=== PATIENT | male | born 1960 | race Caucasian/White ===

== ENCOUNTER → 2020-12-16 01:55 | Outpatient (CLI) | payer BC, SELFPAY ==
[2020-12-16 19:33] LABS: SARS-CoV-2 RNA PCR Negative
== END ==
PROVIDERS: Visit Provider Internal Medicine Gastroenterology
DX: Z01.812 Encounter for preprocedural laboratory examination (principal); Z20.822 Contact with and (suspected) exposure to COVID-19
CPT/HCPCS: C9803; U0003; U0005

== ENCOUNTER 2020-12-20 01:44 | Day surgery (SDC) | payer BC, SELFPAY ==
[2020-12-06 14:01] VITALS: BMI 30.6
[2020-12-20 06:54] VITALS: BP 124/87; PULSE 98; RESP 16; TEMP 36.5; O2SAT 97; BMI 30.2
--- NOTE | 2020-12-20 07:01 | PM.HPGS ---
History of Present Illness History of Present Illness Consent: Risks, benefits, and alternatives have been discussed and questions answered. Patient agrees to proceed with procedure. Chief complaint: neoplasm screening, hx colon polyps, GERD Narrative: Domingo Goodwin is a 60 year old male Referred for colon cancer screening. Review of Systems Review of Systems: All systems reviewed & are unremarkable except as noted in HPI and below PMFSH Social History Social History Smoking packs per day: 1 Smoking cigarettes per day: 20.0 Years smoked: 10 Smoking pack-years: 10.00 Smoking status: Former smoker Tobacco type: cigarettes Alcohol intake: current Drinks per week: 20 Substance use type: does not use Living arrangements: with family Gender identity (if verbalized by the patient): Male Spiritual care concerns: No Meds Home Medications and Allergies Home Medications Medication Instructions Recorded Confirmed Type Nexium 24HR 23 mg PO DAILY 12/06/20 12/20/20 History lisinopril 20 mg PO DAILY 12/06/20 12/20/20 History warfarin 8 mg PO DAILY 12/06/20 12/20/20 History Allergies Allergy/AdvReac Type Severity Reaction Status Date / Time oseltamivir [From Tamiflu] AdvReac Vomiting Verified 12/20/20 06:53 Vital Signs Vital Signs - 24 hr 12/20/20 06:54 Temperature 36.5 C Pulse Rate 98 Respiratory Rate 16 Blood Pressure 124/87 Pulse Oximetry 97 Exam Const: General: alert Orientation/consciousness: patient oriented x3 Resp: Auscultation: clear to auscultation bilaterally Cardio: Rhythm: regular rhythm GI: GI Palp: Yes Soft to palpation and No Tenderness to palpation present (GI) Neuro: General: patient oriented x3 Assessment and Plan Assessment and plan (1) Colon cancer screening: Code(s): Z12.11 - Encounter for screening for malignant neoplasm of colon Status: Acute Assessment and Plan: Colonoscopy with possible biopsy or polypectomy or cautery or injection of substances.
[2020-12-20] MEDS: LACTATED RINGERS 1,000 ML 150 ML IV CONT (07:08)
--- NOTE | 2020-12-20 07:22 | PM.HPGS ---
History of Present Illness History of Present Illness Consent: Risks, benefits, and alternatives have been discussed and questions answered. Patient agrees to proceed with procedure. Chief complaint: neoplasm screening, hx colon polyps, GERD Narrative: Domingo Goodwin is a 60 year old male Referred for colon cancer screening. He has had polyps removed in the past. Also he has a long history of acid reflux. He has been on Nexium for several years. He seems to be unable to skip even 1 dose of it because he will develop severe burning in the upper abdomen, an acid like turning as well as heartburn radiating up his chest to the neck. He often feels that he needs to clear his throat Review of Systems Review of Systems: All systems reviewed & are unremarkable except as noted in HPI and below PMFSH Social History Social History Smoking packs per day: 1 Smoking cigarettes per day: 20.0 Years smoked: 10 Smoking pack-years: 10.00 Smoking status: Former smoker Tobacco type: cigarettes Alcohol intake: current Drinks per week: 20 Substance use type: does not use Living arrangements: with family Gender identity (if verbalized by the patient): Male Spiritual care concerns: No Meds Home Medications and Allergies Home Medications Medication Instructions Recorded Confirmed Type Nexium 24HR 23 mg PO DAILY 12/06/20 12/20/20 History lisinopril 20 mg PO DAILY 12/06/20 12/20/20 History warfarin 8 mg PO DAILY 12/06/20 12/20/20 History Allergies Allergy/AdvReac Type Severity Reaction Status Date / Time oseltamivir [From Tamiflu] AdvReac Vomiting Verified 12/20/20 06:53 Vital Signs Vital Signs - 24 hr 12/20/20 06:54 Temperature 36.5 C Pulse Rate 98 Respiratory Rate 16 Blood Pressure 124/87 Pulse Oximetry 97 Exam Const: General: alert Orientation/consciousness: patient oriented x3 Resp: Auscultation: clear to auscultation bilaterally Cardio: Rhythm: regular rhythm GI: GI Palp: Yes Soft to palpation and No Tenderness to palpation present (GI) Neuro: General: patient oriented x3 Assessment and Plan Assessment and plan (1) Colon cancer screening: Code(s): Z12.11 - Encounter for screening for malignant neoplasm of colon Status: Acute Assessment and Plan: Colonoscopy with possible biopsy or polypectomy or cautery or injection of substances. (2) GERD (gastroesophageal reflux disease): Code(s): K21.9 - Gastro-esophageal reflux disease without esophagitis Status: Acute Assessment and Plan: EGD with possible biopsy or dilatation or cautery.
--- NOTE | 2020-12-20 07:42 | WPDANESEPPF ---
Anes - Initial Pre Proc Eval Procedure: Operation Date: 12/20/20 08:00 Proposed Procedures p Esophagogastroduodenoscopy & Screening Colonoscopy - Khris Siddiqui MD Date/Time: 12/20/20 07:42 Surgeon: Khris Siddiqui MD Pre Op Diagnosis: neoplasm screening, hx colon polyps, GERD Patient Data Age: 60 Gender: M Height: 5 ft 7 in Weight: 87.5 kg Last Vital Signs Temp 97.7 F 12/20/20 06:54 Pulse 98 12/20/20 06:54 Resp 16 12/20/20 06:54 BP 124/87 12/20/20 06:54 Pulse Ox 97 12/20/20 06:54 Allergies Allergy/AdvReac Type Severity Reaction Status Date / Time oseltamivir [From Tamiflu] AdvReac Vomiting Verified 12/20/20 06:53 Home Medications Medication Instructions Recorded Confirmed Type Nexium 24HR 23 mg PO DAILY 12/06/20 12/20/20 History lisinopril 20 mg PO DAILY 12/06/20 12/20/20 History warfarin 8 mg PO DAILY 12/06/20 12/20/20 History Patient hx anesthesia problems: none Family hx anesthesia problems: none PMFSH Past Medical History Medical History (Updated 12/20/20 @ 07:32 by Austyn Gar MD) Deep vein thrombophlebitis of leg on warfarin GERD (gastroesophageal reflux disease) Hypertension Social History Social History Smoking packs per day: 1 Smoking cigarettes per day: 20.0 Years smoked: 10 Smoking pack-years: 10.00 Smoking status: Former smoker Tobacco type: cigarettes Alcohol intake: current Drinks per week: 20 Substance use type: does not use Living arrangements: with family Gender identity (if verbalized by the patient): Male Spiritual care concerns: No Anes - Eval Final PreProcedure Day of Procedure 12/20/20 07:42 Patient weight: overweight Heart: regular rate and rhythm Lungs: clear to auscultation Airway: Mallampati scale class II Neurological: alert and oriented Last oral intake: >/= 8 hours ASA classification: III Emergent: no Anesthetic plan: proceed Anesthesia type and monitoring: general GIVS and standard monitoring Informed Consent: The patient's anesthetic plan and its attendant risks and benefits were discussed with the patient/family/POA. Questions were solicited and answers provided to the satisfaction of the patient/family/POA.
[2020-12-20] MEDS: SIMETHICONE ORAL SUSPENSION 20 MG/0.3 ML 30 ML BOTTLE 0.6 ML IRRIGATION (08:16)
[2020-12-20 08:19] VITALS: BP 114/76; PULSE 81; RESP 22; O2SAT 97
[2020-12-20 08:29] VITALS: BP 121/74; PULSE 77; RESP 22; O2SAT 98
[2020-12-20 08:39] VITALS: BP 123/85; PULSE 77; RESP 20; O2SAT 99
== END 2020-12-20 08:55 | disposition home or self-care (01) ==
PROVIDERS: PCP Registered Nurse; Visit Provider Internal Medicine Gastroenterology
PROC: 0DJ08ZZ Inspection of Upper Intestinal Tract, Via Natural or Artificial Opening Endoscopic (ICD-10-PCS; CPT 43235; principal; 2020-12-20 08:00)
DX: Z12.11 Encounter for screening for malignant neoplasm of colon (principal); K21.9 Gastro-esophageal reflux disease without esophagitis; K22.2 Esophageal obstruction; K44.9 Diaphragmatic hernia without obstruction or gangrene; Z86.010 Personal history of colon polyps; I10 Essential (primary) hypertension; I80.209 Phlebitis and thrombophlebitis of unspecified deep vessels of unspecified lower extremity; Z87.891 Personal history of nicotine dependence; Z79.01 Long term (current) use of anticoagulants
CPT/HCPCS: 45378; 43239; 88305; 88313; C9803; J7120; U0003; U0005